=== PATIENT | male | born 1990 | race African-American/Black ===

== ENCOUNTER 2025-07-29 22:47 | Emergency (ER) | payer OTHER ==
[~2025-07-29] VITALS: Ht 175.3 cm; Wt 104.5 kg
[2025-07-29 23:09] VITALS: TEMP 98.3
[2025-07-30 00:33] VITALS: BP 122/61; PULSE 102; RESP 16; O2SAT 100
== END 2025-07-30 01:35 ==
LOC: EMS 23:32
DX: M54.16 Radiculopathy, lumbar region (principal); Z02.89 Encounter for other administrative examinations
CPT/HCPCS: 72100; 99283